=== PATIENT | female | born 1955 | race Caucasian/White ===

== ENCOUNTER → 2021-11-06 | Outpatient (CLI) | payer MEDICARE, SELFPAY ==
--- NOTE | 2021-11-06 07:39 | CT_ITS ---
EXAM: CT CHEST, ABDOMEN AND PELVIS WITH INTRAVENOUS CONTRAST CLINICAL INDICATION: STAGING BREAST CA TECHNIQUE: Helically acquired images were obtained of the chest, abdomen and pelvis with intravenous contrast. This CT exam was performed using one or more of the following dose reduction techniques: automated exposure control, adjustment of the mA and/or kV according to patient size, and/or use of iterative reconstruction technique. This report was created using [employer] report generation technology. CONTRAST: Oral and amp; IV Readi-CAT and amp; 100mL Isovue-370 COMPARISON: None. FINDINGS: CHEST: LUNGS AND PLEURAL SPACES: There are pleural calcifications in the right chest. Calcifications along the right lung base. No mass. No pneumothorax. HEART: Unremarkable. Heart size is normal. No pericardial effusion. No significant coronary artery calcifications. MEDIASTINUM: Unremarkable. No mediastinal or hilar adenopathy. Esophagus is unremarkable. No hiatal hernia. THYROID: Unremarkable. No thyroid lesions. ABDOMEN: LIVER: Unremarkable. Homogeneous. No focal mass. GALLBLADDER AND BILE DUCTS: Unremarkable. No calcified gallstones. No gallbladder distention or wall edema. No intra- or extrahepatic biliary ductal dilation. PANCREAS: Unremarkable. No focal cystic or solid mass. SPLEEN: Unremarkable. Normal size without focal cystic or solid mass. ADRENALS: Unremarkable. No nodules. KIDNEYS AND URETERS: Unremarkable. Normal renal size and position. No hydronephrosis. STOMACH AND BOWEL: Unremarkable. No stomach or bowel distention. No focal inflammatory change. PELVIS: APPENDIX: No evidence of acute appendicitis. BLADDER: Unremarkable. REPRODUCTIVE: Unremarkable as visualized. No mass. CHEST, ABDOMEN and PELVIS: INTRAPERITONEAL SPACE: Unremarkable. No ascites or other fluid collection. No free air. BONES/JOINTS: Unremarkable. No suspicious lytic or blastic abnormality. SOFT TISSUES: Unremarkable. No discrete abdominal or pelvic wall hernia. VASCULATURE: Unremarkable. Aorta is non-dilated. No aortic dissection. No obvious central pulmonary embolism although this study was not performed with the pulmonary embolism protocol. LYMPH NODES: Unremarkable. No enlarged lymph nodes. CT/CT Chest, Abd, Pel w/Contrast IMPRESSION: Pleural calcifications in the right hemithorax which may be due to asbestos related pleural disease. No other acute abnormalities are seen within the chest, abdomen or pelvis. Electronically Signed: Hay Morris MD at 15:42 EDT Reading Location ID and State: [facility] / [place] Tel , Service support ,
== END | disposition home or self-care (01) ==
LOC: CT 07:36
PROVIDERS: PCP Preventive Medicine Occupational Medicine; Referring Provider Internal Medicine Medical Oncology; Visit Provider Internal Medicine Medical Oncology
DX: C50.919 Malignant neoplasm of unspecified site of unspecified female breast (principal)
CPT/HCPCS: 71260; 74177; Q9967

== ENCOUNTER → 2021-11-09 | Outpatient (CLI) | payer MEDICARE, SELFPAY ==
--- NOTE | 2021-11-09 08:40 | NM_ITS ---
CLINICAL: 66-year-old female with history of carcinoma of the breast. WHOLE BODY 99m Tc MDP RADIONUCLIDE BONE SCINTIGRAPHY COMPARISON: None available FINDINGS: Following the intravenous administration of 25.8 mCi of 99m Tc MDP, whole body bone images reveal: 1. Increased radiopharmaceutical is defined in the right anterolateral sixth through-eighth ribs. 2. Facilitated uptake is multifocally apparent in the cervical, thoracic and lumbar spine, acromioclavicular and sternoclavicular compartments of both shoulders, the visualized left elbow and left wrist articulation, knees bilaterally, bilateral ankles, the right-left mid and forefoot. 3. Enhanced tracer distribution is defined in the right proximal tibial diaphysis. 4. The remaining skeletal structures are scintigraphically unremarkable with normal-appearing renal images and urinary bladder activity identified. An increase in uptake is noted in the right and left maxilla, left mandible which likely represent periostitis. NM/Bone Scan Whole Body IMPRESSION: 1. The increase in tracer concentration identified in the right anterolateral sixth rib and right proximal tibial diaphysis may represent trauma-fracture. Plain film radiography correlation may be of benefit. 2. Degenerative arthritis is defined in the cervical, thoracic and lumbar spine, bilateral shoulders, the left elbow and wrist, both knee articulations, the right and left ankles, the right and left midfoot and forefoot. 3. There is no definitive scintigraphic evidence of diffuse axial skeletal metastatic disease. Electronically Signed: Kamlesh Ortiz, at 16:25 EDT ,
== END | disposition home or self-care (01) ==
LOC: NM 08:39
PROVIDERS: PCP Preventive Medicine Occupational Medicine; Referring Provider Internal Medicine Medical Oncology; Visit Provider Internal Medicine Medical Oncology
DX: Z85.3 Personal history of malignant neoplasm of breast (principal)
CPT/HCPCS: 78306; A9503

== ENCOUNTER → 2021-11-14 | Outpatient (CLI) | payer MEDICARE, SELFPAY ==
--- NOTE | 2021-11-14 08:35 | ECHODONC_ITS ---
Reason For Study: Pre-chemo, Rt. breast CA Procedure This was a 2D Doppler, Color Flow transthoracic echocardiogram. Myocardial strain analysis was performed in this exam to aid in the assessment of cardiac function. Exam performed in department. Left Ventricle Normal LV size. Left ventricular systolic function is normal. The estimated ejection fraction is 65 %. Normal diastology for age. No regional wall motion abnormalities noted. Right Ventricle Normal RV size. Normal systolic function. Atria Normal left atrium. Normal right atrium. Mitral Valve Normal mitral valve. Tricuspid Valve Normal tricuspid valve. Trivial tricuspid valve insufficiency. Aortic Valve Normal aortic valve. Trisinus/trileaflet aortic valve. Pulmonic Valve Normal pulmonic valve. Great Vessels Normal aortic root. The pulmonary artery is normal size. Normal inferior vena cava. Pericardium/Pleural No pericardial effusion. MMode/2D Measurements & Calculations LVIDd: 3.8 cm IVSd: 1.2 cm Ao root diam: 3.5 cm LVIDs: 2.2 cm LVPWd: 0.98 cm RVDd: 3.1 cm FS: 40.4 % LAV(MOD-bp): 44.4 ml LVAd ap4: 24.9 cm2 LVAd ap2: 21.0 cm2 LAV(MOD-bp) Indexed: 22.8 ml/m2 LVLd ap4: 7.3 cm LVLd ap2: 6.8 cm LAV(MOD-sp2): 41.4 ml EDV(MOD-sp4): 72.1 ml EDV(MOD-sp2): 55.2 ml LAV(MOD-sp4): 43.9 ml EDV(sp4-el): 72.5 ml EDV(sp2-el): 54.6 ml LVAs ap4: 13.2 cm2 LVAs ap2: 11.3 cm2 LVLs ap4: 6.4 cm LVLs ap2: 5.9 cm ESV(MOD-sp4): 25.0 ml ESV(MOD-sp2): 19.0 ml ESV(sp4-el): 23.2 ml ESV(sp2-el): 18.2 ml EF(MOD-sp4): 65.3 % EF(MOD-sp2): 65.6 % EF(sp4-el): 68.0 % SV(MOD-sp4): 47.1 ml SV(MOD-sp2): 36.2 ml SV(sp4-el): 49.3 ml LA dimension(2D): 3.5 cm LA A4 area: 17.0 cm2 RA A4 area: 13.9 cm2 Time Measurements MV dec time: 0.24 sec Doppler Measurements & Calculations MV E max darvin: 65.6 cm/sec Lat Peak E' Darvin: 9.8 cm/sec Med Peak E' Darvin: 5.8 cm/sec MV A max darvin: 87.2 cm/sec E/E' lat: 6.7 E/E' med: 11.4 MV E/A: 0.75 MV dec slope: 292.9 cm/sec2 Ao V2 max: 152.3 cm/sec LV V1 max: 127.6 cm/sec Ao max P.3 mmHg LV V1 max P.5 mmHg PA V2 max: 89.5 cm/sec ECHO/ONC Echo Complete Interpretation Summary Normal LV size. Left ventricular systolic function is normal. The estimated ejection fraction is 65 %. The global longitudinal strain is normal. The global longitudinal strain = -20. 5 % (normal). Structurally normal valves. Ordering Physician: Kavon Horowitz Referring Physician: Kavon Horowitz Performed By: Tisha Duarte RDCS
== END | disposition home or self-care (01) ==
LOC: CVS 08:34
PROVIDERS: PCP Preventive Medicine Occupational Medicine; Referring Provider Internal Medicine Medical Oncology; Visit Provider Internal Medicine Medical Oncology
DX: Z01.818 Encounter for other preprocedural examination (principal); C50.911 Malignant neoplasm of unspecified site of right female breast
CPT/HCPCS: 93306; 93356

== ENCOUNTER 2022-02-28 05:44 | Day surgery (SDC) | payer MEDICARE, SELFPAY ==
[2022-02-28] VITALS (7 sets, daily range): BP systolic 109–139; BP diastolic 63–78; PULSE 58–68; RESP 16–18; TEMP 36.8–37.1; O2SAT 96–100; BMI 34.0
[2022-02-28] MEDS: Lactated Ringers 1,000 ML 15 ML IV (06:40)
--- NOTE | 2022-02-28 07:12 | HP.PCM_ITS ---
History and Physical Date of Admission: 02/28/22 Date of Service:? 02/14/22 MR#: [id number] Acct: [id number] Name:REY ORTIZ Rep #: [id number] : 1955 ? ? Provider: Dr. Joana Smiley MD Age/Sex:? 66/F ? ? Location: [facility] [address] Status: Signed Intake Vital Signs ? 02/14/2209:45 Height 5 ft 3 in Weight: 193 lb BMI 34.2 BP 101/63 Blood Pressure Location Lt brachial Position Sitting Respiration 18 Pulse 69 Pulse Source Monitor Temp 97.4 F L Temp Source Temporal Pulse Oximetry (%) 97 Oxygen Delivery Method room air Intake Visit Reasons:?PORT PLACEMENT Chief Complaint: Consult for port placement Acquisitions Assistant Required: No Is patient in pain?: No Allergies Penicillins Allergy (Verified 02/14/22 09:46) Anaphylaxis Medications alendronate 70 mg tablet tablet PO 10/30/21 [History Confirmed 02/14/22] cholecalciferol (vitamin D3) 10 mcg (400 unit) capsule 10 mcg PO DAILY 10/30/21 [History Confirmed 02/14/22] duloxetine 60 mg capsule,delayed release (Cymbalta) 60 mg PO DAILY 10/30/21 [History Confirmed 02/14/22] levothyroxine 137 mcg tablet tablet PO 10/30/21 [History Confirmed 02/14/22] valsartan 160 mg tablet tablet PO 10/30/21 [History Confirmed 02/14/22] enoxaparin 40 mg/0.4 mL subcutaneous syringe ml subcut 01/21/22 [History Confirmed 02/14/22] dexamethasone 4 mg tablet 8 mg PO DAILY #12 tabs 02/07/22 [Rx Confirmed 02/14/22] lidocaine-prilocaine 2.5 %-2.5 % topical cream 1 applic topical ONCE PRN port access 30 days #30 grams 02/07/22 [Rx Confirmed 02/14/22] ondansetron 8 mg disintegrating tablet 8 mg PO Q8H PRN nausea and vomiting #30 tabs 02/07/22 [Rx Confirmed 02/14/22] prochlorperazine maleate 10 mg tablet 10 mg PO Q6H PRN nausea and vomiting #30 tabs 02/07/22 [Rx Confirmed 02/14/22] PFSH Medical History? Breast wound CINV (chemotherapy-induced nausea and vomiting) Encounter for education Graves disease Surgical History? H/O arthroscopy H/O: hysterectomy Family History? Mother Lung cancerFather Myocardial infarctionBrother Melanoma Social History? Smoking Status:? Former smoker quit date: 07/11/09 HPI HPI HPI: 66 y/o F presents for port placement due to triple neg. right breast cancer s/p right lumpectomy/reconstruction.? Planning to start chemo first of the year as pt has a wound on her right breast which is still healing but improving. ROS General General: Yes breast cancer; No weight change, appetite, fatigue or colon cancer HEENT HEENT: No difficulty swallowing, eye injury, eye surgery, swollen glands or hoarseness Endo Endocrine: Yes thyroid disease; No diabetes mellitus, thyroid cancer, Hair loss, heat intolerance or cold intolerance Skin Skin: No rash or changing moles Breast Breast: Yes abnormal mammogram and abnormal US; No left breast lump, right breast lump, nipple discharge, breast pain or breast enlargement Additional Details: s/p right lumpectomy/reconstruction due to right breast cancer Musc Musculoskeletal: Yes arthritis; No back problems, rheumatoid arthritis, gout or joint pain Cardio Cardiovascular: Yes high blood pressure; No murmur, pacemaker, heart disease, atrial fibrillation, heart attack, heart stent, palpitations, shortness of breat with exertion or chest pain Psych Psychiatric: Yes depression; No anxiety or hearing voices Resp Respiratory: No shortness of breath, No sleep apnea, No cough, No COPD, No asthma, No emphysema and No wheezing Gastro Gastrointestinal: No abdominal pain, No nausea or vomiting, No diarrhea, No constipation, No blood in stool, No acid reflux, No hemorrhoids, No ulcers, No gallbladder problem and No black,tarry stools Javed Hematologic: No blood thinners, No blood disorders, No bleeding, No anemia and No blood clots Neuro Neurologic: Yes numbness and Yes tingling Exam Const General: cooperative, healthy appearing and no acute distress HENMT Head: normal to inspection Chest Other: b/l upper chest: normal to palp and inspection right breast s/p reduction/reconstruction- small 6:00 wound healing. Resp Effort & Inspection: normal respiratory effort Cardio Rate: regular rate GI Inspection: non-distended Palpation: soft, no guarding, no hernias and nontender Skin General: no rashes or lesions noted Neuro General: patient oriented x3 Extrem General: no clubbing, cyanosis or edema Psych Affect: normal affect Assessment and Plan Assessment and Plan (1) Encounter for fitting and adjustment of vascular catheter: ?Status:?Acute (2) Breast cancer, right: ?Status:?Acute ?Comment: Clinically early stage Tumor size 1.1cm, LN negative, Triple negative. Had lumpectomy and sentinel node biopsy with oncoplasty on 11/23/2021. Pathology showed Poorly diff invasive ductal carcinoma tumor size 1.1, grade 3, sentinel node 1 negative, pT1c pN0. Prognostically stage IIA(pT1c pN0(sn) M0). Discussed early stage management again, adjuvant therapy-chemotherapy, risks, benefits and side effects. She also have a surgical ulcer under the R breast which is decreasing. She had fracture of the L Tibia and Fibula-12/16/2021, had external fixation device placed 12/18/2021. Had L lower leg surgery-internal fixation on 01/04/2022 Because of surgical ulcer R breast,? chemotherapy start delayed. Plan I have discussed above with the patient- Port-a-Cath placement.? Left IJ possible right Patient has been counseled as to the risks/benefits of the procedure. I have explained the risks of the surgery, including but not limited to: infection, bleeding, injury to any blood vessels/nerves, injury to lungs (such as pneumothorax or hemothorax and need for chest tube), not having any access, nonfunctioning of port due to thrombosis, infection of port, etc.? the patient understands and agrees to proceed. I have answered all the patient's questions to the patient?s satisfaction and the patient has no further questions. Joana Smiley M.D. Pager: [phone] [facility] [address] [place] [address], [facility], [address] [place] [id number] Office: [phone] Coding Level of Care Code Off vis,new,level 3 Diagnoses Encounter for fitting and adjustment of vascular catheter? Z45.2 Breast cancer, right? C50.911 02/14/22 1615 <Electronically signed by Joana Smiley MD> Date Joana Smiley MD
[2022-02-28] MEDS: Clindamycin 900 MG/50 ML BAG 75 MG IV (07:30)
[2022-02-28] MEDS: Lidocaine 2% /Epi 1:100 (20ml) 20 ML VIAL (07:49)
--- NOTE | 2022-02-28 08:16 | PCM.OPRPT ---
Report of Operation Date of Procedure: 02/28/22 Pre-Operative Diagnosis: z45.2, right breast cancer Post-Operative Diagnosis: same Surgeon: Joana Smiley Type of Anesthesia: Local MAC Anesthesiologist: Shar Portillo Special Medications: clindamycin 900 mg IVx1 Specimen's removed: none Estimated Blood Loss (mL): < 10 cc Description of Procedure: After informed consent was obtained, the patient was brought to the operating room and placed in the supine position. Appropriate time out protocol was followed. Patient was then given IV conscious sedation for anesthesia. The patient's left upper chest and neck were then prepped with a surgical skin preparation and sterile surgical drapes were placed. After proper landmarks were ascertained, the skin at the upper left chest area was then infiltrated with 1:1 mixture of 1% lidocaine with epinephrine and 0.5% marcaine. A needle trocar was then inserted into the left internal jugular vein with ultrasound guidance-multiple vessels were viewed with u/s and the left IJ was chosen-- and there was good aspiration of venous blood. A wire was then threaded into the needle trocar and this was visualized under fluoroscopy to ensure that the wire was in the superior vena cava. Once this was done, then the needle trocar was removed. A small skin yaron was made with an 11 blade knife at the wire entrance site. The dilator with the introducer sheath attached was then placed over the wire into the left internal jugular vein via the Seldinger technique and this was visualized under fluoroscopy. The dilator and sheath were in proper position as visualized by fluoroscopy. A subcutaneous pocket was then created caudad to the catheter insertion site. A transverse skin incision was made after the skin and subcutaneous tissues were infiltrated with local anesthetic. Blunt dissection was then used to create a space large enough for placement of the subcutaneous port. The catheter was then tunneled into the subcutaneous pocket. The wire and dilator were then removed. The catheter was then threaded into the introducer sheath and was positioned with its tip at the junction of the superior vena cava and the right atrium as visualized under fluoroscopy. The excess catheter was transected. The catheter was then attached to the subcutaneous port using manufacturers guidelines. The catheter was flushed with a heparin saline mixture prior to placement. Hemostasis was carefully controlled with electrocautery. The port was sutured to the subcutaneous fascia using 2-0 Vicryl suture at two sites. The port was then placed in the subcutaneous pocket. The incision were reapproximated with interrupted subdermal 3-0 vicryl sutures. The skin was reapproximated with 3-0 nylon suture in a interrupted fashion. Steristrips were used for reinforcement of the skin closure at IJ insertion site and a sterile opsite dressings were applied. The patient tolerated the procedure well. Implants Used: [employer] PowerPort isp M.R.I. 6Fr Lot [id number] Complications none
--- NOTE | 2022-02-28 08:18 | RAD_ITS ---
EXAM: XR CHEST, 1 VIEW CLINICAL INDICATION: Port placement. TECHNIQUE: Frontal view of the chest. This report was created using [employer] report generation technology. COMPARISON: None. FINDINGS: LUNGS AND PLEURAL SPACES: No pneumothorax. Minimal subsegmental atelectasis and/or fibrosis in the right lower lobe. No suspicious infiltrates. Pleural calcifications in the right lower hemithorax. Blunting of right costophrenic sulcus due to pleural thickening. No effusion. HEART: Unremarkable. Cardiac silhouette not enlarged. MEDIASTINUM: Central airways and mediastinal contour are unremarkable. BONES/JOINTS: Unremarkable. SOFT TISSUES: Unremarkable. TUBES, LINES AND DEVICES: Left IJ approach kim catheter tip is in the mid SVC. RAD/CXR for Line Placement IMPRESSION: 1. No pneumothorax following left IJ approach portacatheter placement, tip is in the mid SVC. 2. Calcified pleural plaques in the right lower hemithorax, right pleural thickening and mild fibrosis and/or subsegmental atelectases in the right lower lung zone. Electronically Signed: Cash Reese MD at 9:03 EST ,
--- NOTE | 2022-02-28 08:25 | DCINST_ITS ---
Discharge Instructions Procedure Port-A-Cath Diet Discharge Diet: Light diet - advance as tolerated Activity May shower in (days): 5 (Keep port site clean and dry x5 days. Neck incision okay to get wet after 1 day. Okay to lower shower and upper sponge bath. OR okay to taper off port site with a Ziploc bag to shower) Lifting Restrictions: No lifting > 15 pounds for 3 days with the arm on the side of the port Dressing / Incision Call your doctor if your incision/area has: Continuous Slow Oozing, Sudden Increased Bleeding, Increased Pain/ Swelling, Increased Redness, Foul Smelling Discharge and Swelling at the incision site Call your doctor if you observe: Fever of 101 or Higher Change Dressing in: 2 days Follow Up Care Please Follow Up With: Joana Smiley MD When: In 10 days for permanent suture removal?call office for appointment Test Results: Test results from this visit will be discussed in further detail at your follow- up appointment, if applicable. Discharge Plan Admission Attending Provider: Joana Smiley Primary Care Provider: Deric Cotton Discharge Orders/Prescriptions Prescriptions: New oxycodone-acetaminophen 5-325 mg tablet 1 tab PO Q6H PRN (Reason: pain) 3 Days Qty: 5 0RF Continued alendronate 70 mg tablet 70 tablet PO HOOPER duloxetine [Cymbalta] 60 mg capsule,delayed release(DR/EC) 60 mg PO DAILY levothyroxine 137 mcg tablet 1 tablet PO DAILY valsartan 160 mg tablet 1 tablet PO DAILY cholecalciferol (vitamin D3) 10 mcg (400 unit) capsule 10 mcg PO DAILY lidocaine-prilocaine 2.5-2.5 % cream 1 applic topical ONCE PRN (Reason: port access) 30 Days Qty: 30 2RF ondansetron 8 mg tablet,disintegrating 8 mg PO Q8H PRN (Reason: nausea and vomiting) Qty: 30 2RF prochlorperazine maleate 10 mg tablet 10 mg PO Q6H PRN (Reason: nausea and vomiting) Qty: 30 2RF duloxetine [Cymbalta] 60 mg Capsule,Delayed Release(Dr/Ec) 60 mg PO DAILY dexamethasone 4 mg tablet 8 mg PO PRN PRN (Reason: BEFORE CHEMO) Rx Instructions: 8 mg orally; twice daily ONLY the day before, day of and the day after chemotherapy Referrals / Follow Up: Deric Cotton DO [Primary Care Provider] - Disposition Disposition (needs filled in before D/C Order can be placed): Home, Self Care
== END 2022-02-28 09:54 | disposition home or self-care (01) ==
LOC: SDC 05:44 → AC 05:45
PROVIDERS: PCP Preventive Medicine Occupational Medicine; Referring Provider Surgery; Visit Provider Surgery
PROC: (CPT 36561; principal; 2022-02-28 07:15)
DX: Z45.2 Encounter for adjustment and management of vascular access device (principal); C50.911 Malignant neoplasm of unspecified site of right female breast; Z87.891 Personal history of nicotine dependence; Z80.8 Family history of malignant neoplasm of other organs or systems; I10 Essential (primary) hypertension; G25.81 Restless legs syndrome
CPT/HCPCS: 36561; 00532; 71045; 77001; J7120; C1769; J2405

== ENCOUNTER → 2022-04-10 | Outpatient (CLI) | payer MEDICARE, SELFPAY ==
--- NOTE | 2022-04-10 11:27 | VDLE_ITS ---
Reason For Study: Swelling RIGHT LEFT CFV is compressible, spontaneous, phasic, CFV is compressible, spontaneous, phasic, competent and demonstrates normal competent, and demonstrates normal augmentation. augmentation. Procedure FV is compressible, spontaneous, phasic, This is a venous duplex using B-mode, color competent and demonstrates normal flow and spectral Doppler. augmentation. Exam performed in department. POP V is compressible, spontaneous, phasic, The exam was diagnostic. competent and demonstrates normal A preliminary report was called and/or faxed augmentation. to Alissa Caro. T/P Trunk is compressible. PTV is compressible. LT PerV is compressible. LT GSV previously ablated. Multiple branches of LT ASV are dilated and non-compressible with echogenic filling and no flow noted in color or pulsed wave doppler. LT Gastrocnemius Vein at mid calf is dilated and non compressible with echogenic filling and no flow noted in color or pulsed wave doppler. VL/Venous Duplex US, Unilateral Interpretation Summary Superficial thrombophlebitis left accessory saphenous vein of the calf. Deep venous thrombosis left gastrocnemius vein Previously ablated left great saphenous vein Normal flow patterns right common femoral vein Ordering Physician: Alissa Caro Referring Physician: Alissa Caro Performed By: Jacoby Guido RVT
== END | disposition home or self-care (01) ==
LOC: CVS 11:25
PROVIDERS: PCP Preventive Medicine Occupational Medicine; Referring Provider Nurse Practitioner Family; Visit Provider Nurse Practitioner Family
DX: I82.462 Acute embolism and thrombosis of left calf muscular vein (principal)
CPT/HCPCS: 36591; 80053; 83615; 83735; 84100; 85025; 93971; A4216

== ENCOUNTER → 2023-12-16 | Outpatient (CLI) | payer MEDICARE, SELFPAY ==
--- NOTE | 2023-12-16 14:23 | CT_ITS ---
HISTORY: Lung cancer screening -- and gt;20 pk yr hx;former smoker; asymptomatic. TECHNIQUE: Helically acquired images were obtained of the chest without contrast. A radiation dose optimization technique was used for this scan. 501 images. COMPARISON: XR 02/28/2022, CT 11/06/2021. FINDINGS: LARGE AIRWAYS: Patent. LUNGS: Mild hyperinflation with chronic apical scarring. Stable 2 mm right upper lobe nodule medially on image 52/225. Chronic mild right lower lobe scarring. No new suspicious nodule. PLEURA: Chronic calcified right pleural plaques. No pneumothorax or significant pleural effusion. HEART/PERICARDIUM: Heart within normal limits in size with coronary artery calcification. No pericardial effusion. VESSELS: Thoracic aorta nondilated. MEDIASTINUM/TEO: No pathologically enlarged adenopathy. UPPER ABDOMEN: Unchanged appearance. CHEST WALL: Mild degenerative changes of the osseous structures. Chronic mild T11 compression fracture. Bilateral breast implants. CT/Low Dose CT Lung Screening IMPRESSION: Lung-RADS category 2: Continue annual screening with low dose CT. Electronically Signed: Natalie Nieto MD at 15:55 EDT ,
== END | disposition home or self-care (01) ==
LOC: CT 14:23
PROVIDERS: PCP Preventive Medicine Occupational Medicine; Referring Provider Nurse Practitioner Family; Visit Provider Nurse Practitioner Family
DX: Z12.2 Encounter for screening for malignant neoplasm of respiratory organs (principal); Z87.891 Personal history of nicotine dependence
CPT/HCPCS: 71271